=== PATIENT | female | born 2000 | race Caucasian/White ===

== ENCOUNTER 2023-06-21 15:23 | Outpatient (RCR) | payer OTHER, SELFPAY ==
[2023-06-22] MEDS: RHO(D) IMMUNE GLOBULIN 300 MCG/2 ML SYRINGE IM (14:55)
== END 2023-09-05 11:32 | disposition other institution (70) ==
LOC: ANHLAB 15:23
PROVIDERS: PCP Internal Medicine; Visit Provider Advanced Practice Midwife
DX: Z29.13 Encounter for prophylactic Rho(D) immune globulin (principal); O36.0190 Maternal care for anti-D [Rh] antibodies, unspecified trimester, not applicable or unspecified; Z3A.00 Weeks of gestation of pregnancy not specified
CPT/HCPCS: 36415; 85461; 86850; 86900; 86901; 90384; 96372; J2790

== ENCOUNTER 2023-09-05 11:25 | Outpatient (RCR) | payer OTHER, SELFPAY ==
[2023-09-06] MEDS: RHO(D) IMMUNE GLOBULIN 300 MCG/2 ML SYRINGE IM (16:05)
== END 2023-12-04 23:59 | disposition home or self-care (01) ==
LOC: ANHLAB 11:25
PROVIDERS: PCP Internal Medicine; Visit Provider Advanced Practice Midwife
DX: Z29.13 Encounter for prophylactic Rho(D) immune globulin (principal); O36.0190 Maternal care for anti-D [Rh] antibodies, unspecified trimester, not applicable or unspecified; Z3A.00 Weeks of gestation of pregnancy not specified
CPT/HCPCS: 36415; 85461; 86850; 86880; 86900; 86901; 90384; 96372; J2790

== ENCOUNTER 2023-09-24 11:13 | Inpatient (IN) | payer OTHER, SELFPAY ==
[2023-09-24] VITALS (31 sets, daily range): BP systolic 109–146; BP diastolic 52–104; PULSE 84–116; RESP 18; TEMP 36.3–37.1; BMI 45.2
--- NOTE | 2023-09-24 12:43 | LDADM ---
This patient, Vanessa Lugo, was admitted to Labor/Delivery/Recovery 101 on 09/24/23 at 11:13. Plans for labor, pain management and were discussed with patient. Patient/family oriented to hospital policies and general routines including ID bracelet, bed and alarms, visiting hours, pain management, procedures, bathroom and other care routines, personal items, smoking policy, room service/diet and guest tray routines, infant security routines, and visiting hours. Patient/Family are encouraged to report perceived risks to care and to ask questions if they do not understand what they are told or what they should do. See OBIX for further documentation.
[2023-09-24 13:05] LABS: Basophils Absolute Auto 0.1 K/mm3 (0.0-0.1); Basophils Percent Auto 0.6 % (0.2-1.2); Eosinophils Absolute Auto 0.1 K/mm3 (0-0.3); Hematocrit 36.8 % (37.0-47.0); Hemoglobin 12.4 g/dL (12.0-15.0); Immature Granulocyte Absolute 0.33 K/mm3 (0.00-0.031); Immature Granulocyte Percent A 3.2 % (0-0.5); Lymphocytes Percent Auto 18.7 % (18.3-44.2); Mean Corpuscular HGB Conc 33.7 g/dl (32-36); Mean Corpuscular Hemoglobin 30.2 pg (26-34); Mean Corpuscular Volume 89.5 fl (80-100); Monocytes Absolute Auto 0.9 K/mm3 (0.1-0.6); Monocytes Percent Auto 8.8 % (2.6-8.5); Neutrophils Absolute Auto 6.9 K/mm3 (1.3-6.7); Neutrophils Percent Auto 67.7 % (45.5-73.1); Platelet Count Result 217 k/mm3 (150-375); Red Blood Count 4.11 M/mm3 (4.2-5.4); Red Cell Distribution Width 13.2 % (11.5-14.5); White Blood Count 10.2 K/mm3 (4.5-10.0)
[2023-09-24 13:35] LABS: Glucose Point of Care 73 mg/dl (65-105)
[2023-09-24] MEDS: LACTATED RINGERS 1,000 ML 125 ML IV CONT ×2 (13:35→21:39)
[2023-09-24] MEDS: OXYTOCIN 30 UNITS/NS 500 ML 30 UNITS/500 ML BAG IV CONT (13:35)
--- NOTE | 2023-09-24 14:17 | WPDOBADMIT ---
Obstetrics - Admit Note Admission Note: record reviewed. No pertinent additions to the history and/or any subsequent changes in the physical findings that are not consistent with the expected course of the were found. Additions to the history and/or subsequent changes in the physical findings follow. admit for IOL, uncontrolled gdm, LGA, SVE / -2 arom moderate amount of clear, odorless fluid, anticipate vaginal delivery
--- NOTE | 2023-09-24 14:21 | P.PNAN_ITS ---
Anes - Eval Pre Procedure Procedure: labor epidural Date/Time: 09/24/23 14:21 Surgeon: chelsea Preop Diagnosis: pain during labor Pre Op Diagnosis: Induction of Labor/Gestational Diabetes Patient Data Age: 23 Gender: F Height: Weight: Last Vital Signs Pulse 91 09/24/23 14:01 BP 119/78 09/24/23 14:01 Allergies Allergy/AdvReac Type Severity Reaction Status Date / Time clonidine Allergy Mild Hives Verified 09/07/23 14:44 pimozide [From Orap] Allergy Hives Verified 09/07/23 14:46 Home Medications Medication Instructions Recorded Confirmed Type prenat.vits,jada,xio-hcyh-hmdxl 1 tablet 09/07/23 History Laboratory Tests 09/24/23 09/24/23 12:48 13:00 WBC 10.2 H K/mm3 (4.5-10.0) RBC 4.11 L M/mm3 (4.2-5.4) Hgb 12.4 g/dL (12.0-15.0) Hct 36.8 L % (37.0-47.0) MCV 89.5 fl (80-100) MCH 30.2 pg (26-34) MCHC 33.7 g/dl (32-36) RDW 13.2 % (11.5-14.5) Plt Count 217 k/mm3 (150-375) MPV 10.0 fl (7.4-10.4) Immature Gran % (Auto) 3.2 H % (0-0.5) Neut % (Auto) 67.7 % (45.5-73.1) Lymph % (Auto) 18.7 % (18.3-44.2) [place] % (Auto) 8.8 H % (2.6-8.5) Eos % (Auto) 1.0 % (0-4.4) Baso % (Auto) 0.6 % (0.2-1.2) Lymph # (Auto) 1.90 K/mm3 (0.9-3.2) [place] # (Auto) 0.9 H K/mm3 (0.1-0.6) Eos # (Auto) 0.1 K/mm3 (0-0.3) Baso # (Auto) 0.1 K/mm3 (0.0-0.1) Abs Immat Gran (auto) 0.33 H K/mm3 (0.00-0.031) Absolute Neuts (auto) 6.9 H K/mm3 (1.3-6.7) Absolute Nucleated RBC 0.0 K/mm3 (0.0-0.012) Nucleated RBC % 0.0 % (0.0-0.2) POC Capillary Glucose 73 mg/dl (65-105) RPR Pending Patient hx anesthesia problems: none Family hx anesthesia problems: none Results Review: All pre-operative results and documents have been reviewed as part of the pre- operative evaluation. REPLACED BY [facility] Past Medical History Medical History (Updated 09/24/23 @ 14:21 by Selena Montgomery CRNA) IUP (intrauterine ), incidental Family History Family History (Updated 09/07/23 @ 14:47 by Flori Lorenzo RN) Sibling Seizure Social History Social History Substance use: never Last use: 2 cig per day Spiritual care concerns: No Exam Day of Procedure 09/24/23 14:21
[2023-09-24 15:20] LABS: Rapid Plasma Reagin Non-Reactive (NonReactive)
[2023-09-24 16:46] LABS: Glucose Point of Care 117 mg/dl (65-105)
[2023-09-24 20:15] LABS: Glucose Point of Care 81 mg/dl (65-105)
[2023-09-24] MEDS: fentaNYL CITRATE INJ (*CRX) 100 MCG/2 ML VIAL 50 MCG IV PUSH (21:20)
--- NOTE | 2023-09-24 22:30 | PM.OBPRVD ---
OB - Delivery Note Procedure Delivery date: 09/24/23 Procedure: Events: Gestational Diabetes (uncontrolled) Induction method: AROM and Per Pitocin Protocol Delivery monitor: External FHT Route of delivery: Laceration Description: Superficial Specimen: Yes Quantitative Blood Loss (ml): 100 Anesthesia type: None Disposition: Floor Complications: head delivered and to ALEX, anterior shoulder unable to deliver, lindsay and suprapubic pressure applied, shoulder delivered and then posterior shoulder and the rest of the baby followed quickly after [place] Baby Date of : 09/24/23 Time of : 22:17 Weeks of gestation at delivery: 38 Infant gender: Male Weight (pounds): 9 Weight (ounces): 2 presentation: vertex position: Left Occiput Anterior Placenta delivery description: Spontaneous Cord Vessel Description: 3 Vessels and Clamped/Cut Narrative: baby to warmer, but after 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
[2023-09-25] VITALS (7 sets, daily range): BP systolic 95–138; BP diastolic 51–92; PULSE 87–102; RESP 14–16; TEMP 36.5–37; O2SAT 97–98
[2023-09-25 06:11] LABS: Hematocrit 34.6 % (37.0-47.0); Hemoglobin 11.5 g/dL (12.0-15.0)
--- NOTE | 2023-09-25 08:14 | PM.OBPNVD ---
OB - PN: Subj Subjective Date/time seen: 09/25/23 08:14 Interval history: pp day 1 doing well denies complaints OB - PN: Obj Data Labs 09/25/23 05:03 Labs: Laboratory Results - last 24 hr 09/24/23 09/24/23 09/24/23 12:48 13:00 16:10 WBC 10.2 H RBC 4.11 L Hgb 12.4 Hct 36.8 L MCV 89.5 MCH 30.2 MCHC 33.7 RDW 13.2 Plt Count 217 MPV 10.0 Immature Gran % (Auto) 3.2 H Neut % (Auto) 67.7 Lymph % (Auto) 18.7 [place] % (Auto) 8.8 H Eos % (Auto) 1.0 Baso % (Auto) 0.6 Lymph # (Auto) 1.90 [place] # (Auto) 0.9 H Eos # (Auto) 0.1 Baso # (Auto) 0.1 Abs Immat Gran (auto) 0.33 H Absolute Neuts (auto) 6.9 H Absolute Nucleated RBC 0.0 Nucleated RBC % 0.0 POC Capillary Glucose 73 117 H RPR Non-reactive Blood Type O Negative Antibody Screen Positive Antibody Identification Passive Due to RH Imm Glob Antigen Identification Cancelled BERT, IgG Interpret Negative BERT, Poly Interpret Negative BERT, Complement Interp Negative 09/24/23 09/25/23 20:11 05:03 WBC RBC Hgb 11.5 L Hct 34.6 L MCV MCH MCHC RDW Plt Count MPV Immature Gran % (Auto) Neut % (Auto) Lymph % (Auto) [place] % (Auto) Eos % (Auto) Baso % (Auto) Lymph # (Auto) [place] # (Auto) Eos # (Auto) Baso # (Auto) Abs Immat Gran (auto) Absolute Neuts (auto) Absolute Nucleated RBC Nucleated RBC % POC Capillary Glucose 81 RPR Blood Type O Negative Antibody Screen Antibody Identification Antigen Identification BERT, IgG Interpret BERT, Poly Interpret BERT, Complement Interp OB - PN A/P Plan day: 1 Time Spent With Patient Time: Total time spent is greater than 50% in coordination of care (as documented) at patient's floor/unit and/or counseling patient: Review of Systems Review of Systems: All systems reviewed & are unremarkable except as noted in HPI and below Exam Const: General: cooperative Chest: Chest palpation & inspection: normal inspection of the chest Resp: Effort & Inspection: normal respiratory effort Cardio: Rate: regular rate Rhythm: regular rhythm GI: Other: soft Skin: General skin exam: normal color Neuro: General: patient oriented x3
[2023-09-25] MEDS: MULTIVIT/MIN/PREN/FOL AC/IRON TABLET 1 TAB PO (10:00)
[2023-09-25] MEDS: DOCUSATE SODIUM 100 MG CAPSULE PO ×2 (10:00→16:44)
[2023-09-25] MEDS: IBUPROFEN 600 MG TABLET PO ×2 (10:00→16:44)
[2023-09-25] MEDS: RHO(D) IMMUNE GLOBULIN 300 MCG/2 ML SYRINGE IM (10:47)
--- NOTE | 2023-09-25 13:33 | PC.NURSE ---
[id number] Introductions were made, then consulted with patient to assess needs related to . Mother led the conversation with her?plans to feed?her infant and the?experience so far. Mother works well with her with encouragement and education. Encouraged understanding of the benefits of skin to skin (demonstrating unwrapping and placing upright on her chest), stimulating with massage touch, changing positions to encourage wakefulness, how to watch for early feeding cues, responsive feeding, feeding on demand (aiming for 8-12 times in 24 hours, about every 2-3 hours), milk production, building/maintaining a milk supply, duration of feeding, signs of adequate intake/output and how to record on the feeding sheet. Reviewed positioning and ear, shoulder, hip alignment, supporting the breast to facilitate a deep latch, asymmetrical latch (off-center), leading with the chin with a big, open, wide gape and body close to mother. Infant was attempted to latch to the right breast using the football positioning and the infant misshapes the nipple so, we repositioned. latched optimally to the right breast in cross cradle position. Education given to mother of how to visualize suck/swallow ratios and listen for drinking at the breast. Infant was able to maintain latch without discomfort to mother. Nipple care reviewed with optimal latch and good positioning. Reviewed good handwashing when or touching the breast/nipples to prevent infection. Resources used to facilitate learning were used with the tool, mom and baby guide. Mother voiced understanding of skin to skin, stimulating with massage touch, responsive feedings, hand expressed colostrum, talking to infant to encourage if it has been 2 -2.5 hours since the start of the last , to call if infant does not latch, or if there is discomfort with . Resources provided for inpatient/outpatient with feeding sheet, name written on the communication board and the mom/baby guide. Mother voiced understanding of information, demonstrated learning and will call if there is a request for assistance. Reported to the Primary RN.
[2023-09-26 07:46] VITALS: BP 117/80; PULSE 75; RESP 20; TEMP 36.3; O2SAT 98
[2023-09-26] MEDS: MULTIVIT/MIN/PREN/FOL AC/IRON TABLET 1 TAB PO (08:51)
[2023-09-26] MEDS: DOCUSATE SODIUM 100 MG CAPSULE PO (08:51)
--- NOTE | 2023-09-26 08:58 | PM.OBPNVD ---
OB - PN: Subj Subjective Date/time seen: 09/26/23 08:58 Interval history: pp day 2 doing well plan d/c home denies complaints OB - PN: Obj Data Labs 09/25/23 05:03 Labs: Laboratory Results - last 24 hr 09/25/23 05:03 Blood Type O Negative Antibody Screen TNP Screen Negative Baby's Blood Type O pos Baby's BERT Positive Doses of RhIg Required 1 OB - PN A/P Plan day: 2 Plan: routine care and discharge home Time Spent With Patient Time: Total time spent is greater than 50% in coordination of care (as documented) at patient's floor/unit and/or counseling patient: Review of Systems Review of Systems: All systems reviewed & are unremarkable except as noted in HPI and below Exam Const: General: cooperative and healthy appearing Chest: Chest palpation & inspection: normal inspection of the chest Resp: Effort & Inspection: normal respiratory effort Cardio: Rate: regular rate GI: Other: soft Skin: General skin exam: normal color Extrem: Right lower extremity: normal to inspection Left lower extremity: normal to inspection
--- NOTE | 2023-09-26 08:59 | PM.OBDSVD ---
DS: Admitting Diagnosis Discharge Date 09/26/23 Admitting Diagnosis IOL, GDMA-2 DS: Discharge Diagnosis Discharge Diagnosis (1) Vaginal delivery: Code(s): O80 - Encounter for full-term uncomplicated delivery Status: Acute OB - DS: Summary OB Procedures : None OB Procedures Intrapartum: Spontaneous Vag Delivery OB Procedures: : None Peripartum Data Laceration Description: Superficial Time Spent with Patient Time attestation: Total time spent providing and/or coordinating discharge services: DS: Data Data Completed and Pending Pending studies at discharge: Pending at discharge 09/24/23 22:19 Surgical [PTH] Routine Labs on day of discharge: Labs from last 24 hours 09/25/23 05:03 Blood Type O Negative Antibody Screen TNP Screen Negative Baby's Blood Type O pos Baby's BERT Positive Doses of RhIg Required 1 Discharge Plan Discharge Attending physician on discharge: Hugo Rod Discharging Clinician: Corina Vasquez Patient Disposition: Home, Self-Care Activity: pelvic rest Diet: regular Patient Instructions: Antibiotic Form Stand Alone Forms: General Discharge Information Follow-up/Referrals: Corina Vasquez, CNM [Certified Nurse Digital Associate Media Director] - 4 Weeks Discharge Medications: New ibuprofen 600 mg Tablet 600 mg PO Q6H PRN (Reason: Cramping) Qty: 30 0RF Continued #2 Tablet 1 tablet PO HS Date of admission: 09/24/23 11:13 Primary Care Provider: Neli,Laurie Corea Admitting Provider: Hugo Rod Attending physician on admission: Hugo Rod Condition: Stable
--- NOTE | 2023-09-26 10:37 | PC.NURSE ---
Patient viewed the discharge video Mother & Baby Care, The First Two Weeks online. Patient was given the opportunity and encouraged to ask questions. Patient verbalized understanding of information shared and has been given the mother/baby guide for home reference.
[2023-09-27 15:15] VITALS: BP 136/78; PULSE 94; RESP 18; TEMP 37.4; O2SAT 98
== END 2023-09-26 12:45 | disposition home or self-care (01) | DRG 560 ==
LOC: ANHLDR 13:46 → ANHOB2 09-26 08:59 → ANHLDR 09-27 11:23 → ANHOB2 09-27 11:23
PROVIDERS: Admitting Provider Obstetrics & Gynecology; PCP Internal Medicine; Referring Provider Advanced Practice Midwife; Visit Provider Obstetrics & Gynecology
DX: O24.429 Gestational diabetes mellitus in childbirth, unspecified control (principal); Z37.0 Single live birth; O36.63X0 Maternal care for excessive fetal growth, third trimester, not applicable or unspecified; Z3A.38 38 weeks gestation of pregnancy; O66.0 Obstructed labor due to shoulder dystocia
CPT/HCPCS: 36415; 82948; 85014; 85018; 85025; 85461; 86592; 86850; 86870; 86880; 86900; 86901; 86902; 86971; 88307; 90384; A9270; J2590; J2790; J3010; J7120